=== PATIENT | male | born 1990 | race American Indian/Alaskan Native ===

== ENCOUNTER 2019-11-01 23:02 | Emergency (ER) | payer MEDICARE ==
[2019-11-02] MEDS ORDERED: diphenhydrAMINE 25 MG CAP PO ONE (00:15)
[2019-11-02] MEDS ORDERED: ONDANSETRON 4 MG/2 ML INJ IV ONE (00:15)
[2019-11-02] MEDS ORDERED: MORPHINE 4 MG/1 ML INJ IV ONE (00:15)
--- NOTE | 2019-11-02 00:17 | Emergency Department Report ---
ED General Adult HPI - General Chief complaint: Abdominal Pain Stated complaint: ABD PAIN/EMESIS Time Seen by Provider: 11/02/19 00:05 Source: patient, RN notes reviewed, old records reviewed Mode of arrival: Ambulatory Limitations: No Limitations - History of Present Illness Initial comments: This patient is not known to myself previously. His primary care doctor and sandwich board carrier is Dr. Mueller in [place] Patient has a history of end-stage renal disease, on hemodialysis, right thoracic permacath. Also has a history of left lower extremity below-knee amputation, typically gets dialysis Thursday, , Thursday, although this past week, has been on dialysis Thursday, Thursday, secondary to family issues. He presents to the ER with a complaint of probable pancreatitis. He complains of diffuse abdominal cramping, left-sided, nausea vomiting, without fever, neck pain, chest pain, exertional shortness of breath, or extremity weakness and or numbness. He does not produce urine. He endorses that hydromorphone and Benadryl typically improve his symptoms. He is able to tolerate morphine, he indicates that he gets hives. He denies intraoral symptoms for morphine administration. He is not sure what happens with Demerol. -: Gradual, days(s) Location: abdomen Quality: aching Consistency: constant Improves with: medication, rest Worsens with: movement - Related Data Home Medications Medication Instructions Recorded Confirmed Last Taken Calcium Acetate [Phoslo] 667 mg PO TID 11/17/16 11/17/16 Unknown carvediloL [Coreg] 12.5 mg PO DAILY 11/17/16 11/17/16 Unknown Previous Rx's Medication Instructions Recorded Last Taken Type Ondansetron [Zofran Odt] 4 mg PO Q4H PRN #10 tab.rapdis 11/17/16 Unknown Rx Oxycodone HCl/Acetaminophen 1 each PO Q6HR PRN #10 tablet 11/21/16 Unknown Rx [Percocet 7.5/325 mg] hydrALAZINE [Apresoline TAB] 100 mg PO TID #90 tab 11/21/16 Unknown Rx levoFLOXacin [Levaquin TAB] 250 mg PO Q24HR #7 tablet 11/21/16 Unknown Rx metroNIDAZOLE [Flagyl TAB] 250 mg PO Q8HR 7 Days tablet 11/21/16 Unknown Rx Acetaminophen [Non-Aspirin Extra 500 mg PO Q6HR PRN #30 tablet 11/02/19 Unknown Rx Strength] Albuterol Sulfate [Proair 90 mcg IH Q4HR PRN #2 aer.pow.ba 11/02/19 Unknown Rx Respiclick] Radha Root [Radha] 250 mg PO QID PRN #30 capsule 11/02/19 Unknown Rx Metoclopramide [Reglan] 10 mg PO QID PRN #30 tablet 11/02/19 Unknown Rx Allergies Allergy/AdvReac Type Severity Reaction Status Date / Time meperidine HCl [From Demerol] Allergy Hives Verified 06/18/16 05:06 morphine Allergy Hives Verified 06/18/16 05:06 ED Review of Systems ROS: Stated complaint: ABD PAIN/EMESIS Other details as noted in HPI Constitutional: denies: fever Eyes: denies: eye discharge ENT: denies: congestion Respiratory: denies: wheezing Cardiovascular: denies: syncope Gastrointestinal: abdominal pain, nausea, vomiting Genitourinary: denies: dysuria Neurological: denies: weakness Hematological/Lymphatic: denies: easy bleeding ED Past Medical Hx - Past Medical History Hx Hypertension: Yes Hx Congestive Heart Failure: No Hx Diabetes: No Hx Renal Disease: Yes (Dialysis Thu) Hx Asthma: No Hx COPD: No Additional medical history: Pancreatitis 2 years back. - Surgical History Past Surgical History?: Yes Hx Cholecystectomy: Yes (Gall bladder removed.) Additional Surgical History: Dialysis port, left BKA secondary to peripheral vascular disease. Left Leg BKA,, Stump healed well. Gall bladder removed 2 years back. - Social History Smoking Status: Never Smoker Substance Use Type: None - Medications Home Medications: Home Medications Medication Instructions Recorded Confirmed Last Taken Type Calcium Acetate [Phoslo] 667 mg PO TID 11/17/16 11/17/16 Unknown History Ondansetron [Zofran Odt] 4 mg PO Q4H PRN #10 tab.rapdis 11/17/16 Unknown Rx carvediloL [Coreg] 12.5 mg PO DAILY 11/17/16 11/17/16 Unknown History Oxycodone HCl/Acetaminophen 1 each PO Q6HR PRN #10 tablet 11/21/16 Unknown Rx [Percocet 7.5/325 mg] hydrALAZINE [Apresoline TAB] 100 mg PO TID #90 tab 11/21/16 Unknown Rx levoFLOXacin [Levaquin TAB] 250 mg PO Q24HR #7 tablet 11/21/16 Unknown Rx metroNIDAZOLE [Flagyl TAB] 250 mg PO Q8HR 7 Days tablet 11/21/16 Unknown Rx Acetaminophen [Non-Aspirin Extra 500 mg PO Q6HR PRN #30 tablet 11/02/19 Unknown Rx Strength] Albuterol Sulfate [Proair 90 mcg IH Q4HR PRN #2 aer.pow.ba 11/02/19 Unknown Rx Respiclick] Radha Root [Radha] 250 mg PO QID PRN #30 capsule 11/02/19 Unknown Rx Metoclopramide [Reglan] 10 mg PO QID PRN #30 tablet 11/02/19 Unknown Rx ED Physical Exam - General Limitations: No Limitations General appearance: alert, anxious - Head Head exam: Present: atraumatic, normocephalic - Eye Eye exam: Present: normal appearance, EOMI. Absent: nystagmus - ENT ENT exam: Present: normal exam, normal orophraynx, mucous membranes moist, normal external ear exam - Neck Neck exam: Present: normal inspection, full ROM. Absent: tenderness, meningismus - Respiratory Respiratory exam: Present: decreased breath sounds. Absent: wheezes, rales, rhonchi, stridor - Cardiovascular Cardiovascular Exam: Present: regular rate, normal rhythm, normal heart sounds. Absent: bradycardia, tachycardia, irregular rhythm, systolic murmur, diastolic murmur, rubs, gallop - GI/Abdominal GI/Abdominal exam: Present: soft, tenderness (there is minimal left-sided abdominal tenderness with deep palpation.). Absent: distended, guarding, rebound, rigid, pulsatile mass - Rectal Rectal exam: Present: deferred - Extremities Exam Extremities exam: Present: normal inspection, full ROM, other (2+ pulses noted in the bilateral upper extremities and right lower extremity. Left lower extremity is status post below-knee amputation. There is no redness, pus or streaking. The muscular compartments are soft.). Absent: pedal edema, calf tenderness - Back Exam Back exam: Present: normal inspection. Absent: tenderness, CVA tenderness (R), CVA tenderness (L), paraspinal tenderness, vertebral tenderness - Neurological Exam Neurological exam: Present: alert, other (there is no facial droop. The tongue is midline. The extraocular movements are intact bilaterally. Speaking in full sentences. Minimal elevation of the base of the tongue. There is 5 out of 5 strength in the bilateral upper and lower extremities, and sensation is intact to light touch in the bilateral upper and lower extremities. Appropriate insight.). Absent: motor sensory deficit - Psychiatric Psychiatric exam: Present: anxious - Skin Skin exam: Present: warm, dry, intact, normal color, other (there is a right sided thoracic permacath noted, without redness, pus or streaking). Absent: rash ED Course Vital Signs 11/01/19 11/01/19 11/02/19 23:27 23:34 00:29 Temperature 98.6 F 98.6 F Pulse Rate 91 H 92 H 87 Respiratory 18 18 20 Rate Blood Pressure 128/76 128/76 Blood Pressure 136/90 [Right] O2 Sat by Pulse 83 L 93 88 Oximetry 11/02/19 00:36 Temperature Pulse Rate Respiratory Rate Blood Pressure Blood Pressure [Right] O2 Sat by Pulse 100 Oximetry - Reevaluation(s) Reevaluation #1: 11/02/19 00:43 Differential diagnosis, including but not limited to: Colitis, diverticulitis, pancreatitis, chronic renal insufficiency, pulmonary vascular congestion, fluid overload, electrolyte derangement, narcotic bowel syndrome, cyclic vomiting syndrome Assessment and plan: 29-year-old gentleman with complaint of abdominal pain, nausea vomiting, known history of pancreatitis. He is afebrile with reassuring vital signs with the exception of mild hypoxia. X-ray the chest suggests vascular congestion, pulmonary edema. We will not be administering hydromorp boy to this patient. It is too potent a narcotic at this time. Low-dose morphine acceptable at this time. Screening laboratory studies, CT scan abdomen pelvis pending at this time. EKG pending at this time. Reevaluation #2: 11/02/19 02:02 CT scan abdomen pelvis shows chronic findings. Laboratory studies reviewed and appreciated. X-ray the chest reviewed and appreciated, do not clinically suspect pneumonia at this time. Upon review of CT scan abdomen pelvis, it appears that left lower lobe findings are likely pleural thickening, small pleural effusion, and chronic granulomatous disease. Mild hypoxia reviewed and appreciated, however, the patient is not acutely symptomatic. He can take albuterol as needed, he can follow up with an outpatient records management director, and he is suitable to be discharged with oral pain medication, nausea medication, albuterol. He will need to follow up with an outpatient primary care doctor or senior ui software engineer for his chronic pancreatitis, or his primary care sandwich board carrier. ED Medical Decision Making - Lab Data Result diagrams: 11/02/19 00:18 11/02/19 00:18 Vital Signs 11/01/19 11/01/19 11/02/19 23:27 23:34 00:29 Temperature 98.6 F 98.6 F Pulse Rate 91 H 92 H 87 Respiratory 18 18 20 Rate Blood Pressure 128/76 128/76 Blood Pressure 136/90 [Right] O2 Sat by Pulse 83 L 93 88 Oximetry 11/02/19 00:36 Temperature Pulse Rate Respiratory Rate Blood Pressure Blood Pressure [Right] O2 Sat by Pulse 100 Oximetry - EKG Data 11/02/19 01:13 The EKG today shows a sinus rhythm, 74 bpm, there is a normal axis, the QTC is 452 ms, there is low voltage, motion artifact, prolonged AK interval, not consistent with ST elevation myocardial infarction. - Radiology Data Radiology results: pending, image reviewed interpreted by me: X-ray the chest shows pulmonary vascular congestion, pulmonary edema, right- sided permacath. Print Report Referring Physician: LUDMILA WEBER Patient Name: ALEXEY CHU Date of : 1990 Sex: Male Report Date: 2019-11-02 Report Status: [place] [address] XRay Report Signed Patient: ALEXEY CHU JR MR#: [id number] : 1990 Acct:[id number] Age/Sex: 29 / M ADM Date: 11/01/19 Loc: ED Attending Dr: Ordering Physician: LUDMILA WEBER MD Date of Service: 11/02/19 Procedure(s): XR chest 1V ap Accession Number(s): [id number] cc: LUDMILA WEBER MD Fluoro Time In Minutes: CHEST 1 VIEW INDICATION / CLINICAL INFORMATION: upper abd pain hypoxia. COMPARISON: None available. FINDINGS: SUPPORT DEVICES: Dialysis catheter is in place on the right. HEART / MEDIASTINUM: Moderately enlarged LUNGS / PLEURA: There are small pleural effusions and slight left basilar consolidation. Upper lungs are clear. No pneumothorax. ADDITIONAL FINDINGS: No significant additional findings. IMPRESSION: 1 Small effusions and left basilar consolidation. Signer Name: Gary Lewis MD Signed: 11/02/2019 12:50 AM Workstation Name: [id number] Transcribed By: GEOVANNY Dictated By: Gary Lewis MD Electronically Authenticated By: Gary Lewis MD Signed Date/Time: 11/02/1949 DD/ Critical care attestation.: If time is entered above; I have spent that time in minutes in the direct care of this critically ill patient, excluding procedure time. ED Disposition Clinical Impression: Chronic pancreatitis, ESRD (end stage renal disease) on dialysis Disposition: TO HOME OR SELFCARE Is pt being admited?: No Does the pt Need Aspirin: No Condition: Stable Additional Instructions: Avoid consumption of Motrin, ibuprofen, Naprosyn, Aleve. Take the pain medication as needed, nausea medications as needed and directed. Use the albuterol medication as needed for cough, wheezing and shortness of breath. Follow-up with the primary care doctor within the next 5-7 days, or senior ui software engineer within the next 5-7 days, or sandwich board carrier within the next 5-[address] scan abdomen pelvis and x-ray the chest demonstrated nonspecific findings on the lungs, this should be followed up by her primary care doctor or records management director within the next 2 weeks. Please return to the emergency room right away with new, worsening, different symptoms, or symptoms not present on the initial emergency room evaluation. Referrals: FLORY UGARTE MD [Staff Physician] - 7-10 days (gastroenterology) EDGAR FERRELL MD [Staff Physician] - 7-10 days (pulmonology) GAYLE CAMPOS MD [Staff Physician] - 7-10 days (nephrology)
[2019-11-02 00:47] LABS: Albumin 4.2 g/dL (3.9-5); Calcium 8.4 mg/dL (8.4-10.2); Hematocrit 31.1 % (35.5-45.6); Hemoglobin 10.2 gm/dl (11.8-15.2); Mean Corpuscular HGB Conc 33 % (32-34); Mean Corpuscular Volume 89 fl (84-94); Platelet Count 139 K/mm3 (140-440); Red Cell Distribution Width 17.8 % (13.2-15.2)
[2019-11-02 00:49] LABS: INR 1.01 (0.87-1.13)
--- NOTE | 2019-11-02 00:55 | XRay Report ---
CHEST 1 VIEW INDICATION / CLINICAL INFORMATION: upper abd pain hypoxia. COMPARISON: None available. FINDINGS: SUPPORT DEVICES: Dialysis catheter is in place on the right. HEART / MEDIASTINUM: Moderately enlarged LUNGS / PLEURA: There are small pleural effusions and slight left basilar consolidation. Upper lungs are clear. No pneumothorax. ADDITIONAL FINDINGS: No significant additional findings. IMPRESSION: 1 Small effusions and left basilar consolidation. Signer Name: Gary Lewis MD Signed: 11/02/2019 12:50 AM Workstation Name: [email or web address]
--- NOTE | 2019-11-02 01:46 | Cat Scan Report ---
CT of the abdomen and pelvis without contrast INDICATION: Abdominal pain with nausea and vomiting COMPARISON: 11/20/2016 FINDINGS: Calcified granulomas and parenchymal calcifications are seen at the lung bases. There is si gnificant cardiomegaly with pericardial calcification as well. Moderate bibasilar pleural thickening is seen with a small left pleural effusion. The liver, spleen and adrenal glands are grossly normal. There is marked renal atrophy and cystic changes consistent with renal failure. Extensive vascular ca lcification is seen as well as extensive pancreatic calcifications consistent with chronic calcific p ancreatitis. Pancreatic ductal dilation is seen as well. Common duct is not dilated. Gallbladder is b een removed. There is small amount of ascites in the upper abdomen. CT of the pelvis shows no bowel obstruction. Prostate is not enlarged. No diverticulosis or diverticu litis. Osteoporosis is seen. Appendix is seen and is normal. IMPRESSION: Chronic findings as described. No acute abnormality seen. Automated exposure control was utilized to diminish radiation dose. Signer Name: Gary Lewis MD Signed: 11/02/2019 1:42 AM Workstation Name: [email or web address]
[2019-11-02 03:07] VITALS: BP 117/84
== END 2019-11-02 02:30 | disposition home or self-care (01) ==
LOC: ED 23:02
DX: K86.1 Other chronic pancreatitis (principal); I12.0 Hypertensive chronic kidney disease with stage 5 chronic kidney disease or end stage renal disease; N18.6 End stage renal disease; Z99.2 Dependence on renal dialysis; Z90.49 Acquired absence of other specified parts of digestive tract; Z79.899 Other long term (current) drug therapy; Z88.5 Allergy status to narcotic agent; Z88.8 Allergy status to other drugs, medicaments and biological substances
CPT/HCPCS: 36415; 71045; 74176; 80053; 82550; 83690; 83735; 85027; 85610; 93005; 93010; 96374; 96375; 99285; J2270; J2405

== ENCOUNTER 2021-01-01 20:49 | Observation (INO) | payer MEDICARE ==
[2021-01-01 22:10] LABS: Basophils % (Auto) 0.7 % (0.0-1.8); Eosinophils # (Auto) 0.2 K/mm3 (0.0-0.4); Eosinophils % (Auto) 4.2 % (0.0-4.3); Hematocrit 25.3 % (35.5-45.6); Hemoglobin 8.3 gm/dl (11.8-15.2); Lymphocytes # (Auto) 0.8 K/mm3 (1.2-5.4); Mean Corpuscular HGB Conc 33 % (32-34); Mean Corpuscular Volume 89 fl (84-94); Monocytes # (Auto) 0.5 K/mm3 (0.0-0.8); Monocytes % (Auto) 10.6 % (0.0-7.3); Platelet Count 146 K/mm3 (140-440); Red Blood Count 2.85 M/mm3 (3.65-5.03); Red Cell Distribution Width 16.2 % (13.2-15.2)
[2021-01-01 23:26] LABS: Albumin 3.8 g/dL (3.9-5); Calcium 7.7 mg/dL (8.4-10.2)
[2021-01-02] MEDS ORDERED: ONDANSETRON 4 MG/2 ML INJ IV ONE ×2 (00:49→02:31)
[2021-01-02] MEDS ORDERED: HYDROmorphone 1 MG/1 ML INJ IV ONE ×2 (00:49→02:31)
--- NOTE | 2021-01-02 00:54 | Emergency Department Report ---
HPI - General Chief Complaint: Abdominal Pain Time Seen by Provider: 01/02/21 00:18 - HPI HPI: This is a 30-year-old -[place]ub[place] male presents to the emergency department with complaint of a 3-day history of mid upper abdominal pain with some radiati on towards the back. This is associated with some nausea and vomiting and some loose stools. Patient denies any fever, blood in the stool, dysuria, constipation, shortness of breath, chest pain. The patient was here about 1 month ago with similar symptoms and was found to have colitis at that time. The patient thinks that it is due to his pancreas as he has a history of chronic pancreatitis. He has a past medical history of hypertension, pulmonary fibrosis on home O2 at 3 L, left BKA secondary to PVD, previous cholecystectomy, and end- stage renal disease on hemodialysis on Thursday/Thursday/Thursday. However the patient says that he is getting dialyzed this week ///Thursday. His nephro logist is Dr. Harris. He has not taken anything for his symptoms prior to presentation. No recent travel or sick contacts at home. He rates his abdominal pain at 9 out of 10 in intensity. No known aggravating or alleviating factors. ED Past Medical Hx - Past Medical History Previous Medical History?: Yes Hx Hypertension: Yes Hx Congestive Heart Failure: No Hx Diabetes: No Hx Renal Disease: Yes (11/2020 Dialysis: Thu) Hx Asthma: No Hx COPD: No Additional medical history: Pancreatitis 2 years back. Pulmonary fibrosis with chronic respiratory failure and home oxygen @ 3L - Surgical History Past Surgical History?: Yes Hx Cholecystectomy: Yes (Gall bladder removed.) Additional Surgical History: Dialysis port, left BKA secondary to peripheral vascular disease. Left Leg BKA,, Stump healed well. Gall bladder removed 2 years back. - Social History Smoking Status: Never Smoker Substance Use Type: None - Medications Home Medications: Home Medications Medication Instructions Recorded Confirmed Last Taken Type Calcium Acetate [Phoslo] 667 mg PO TID 11/17/16 11/17/16 Unknown History Ondansetron [Zofran Odt] 4 mg PO Q4H PRN #10 tab.rapdis 11/17/16 Unknown Rx carvediloL [Coreg] 12.5 mg PO DAILY 11/17/16 11/17/16 Unknown History Oxycodone HCl/Acetaminophen 1 each PO Q6HR PRN #10 tablet 11/21/16 Unknown Rx [Percocet 7.5/325 mg] hydrALAZINE [Apresoline TAB] 100 mg PO TID #90 tab 11/21/16 Unknown Rx levoFLOXacin [Levaquin TAB] 250 mg PO Q24HR #7 tablet 11/21/16 Unknown Rx metroNIDAZOLE [Flagyl TAB] 250 mg PO Q8HR 7 Days tablet 11/21/16 Unknown Rx Acetaminophen [Non-Aspirin Extra 500 mg PO Q6HR PRN #30 tablet 11/02/19 Unknown Rx Strength] Albuterol Sulfate [Proair 90 mcg IH Q4HR PRN #2 aer.pow.ba 11/02/19 Unknown Rx Respiclick] Radha Root [Radha] 250 mg PO QID PRN #30 capsule 11/02/19 Unknown Rx Metoclopramide [Reglan] 10 mg PO QID PRN #30 tablet 11/02/19 Unknown Rx Lansoprazole 15 mg PO BID #14 capsule. 05/10/20 Unknown Rx traMADoL [Ultram 50 MG tab] 50 mg PO Q6HR PRN #7 tablet 05/10/20 Unknown Rx ED Review of Systems ROS: Stated complaint: ABDOMINAL PAIN/VOMITING Other details as noted in HPI Comment: All other systems reviewed and negative Constitutional: denies: chills, fever Eyes: denies: eye pain, vision change ENT: denies: ear pain, throat pain Respiratory: denies: cough, shortness of breath Cardiovascular: denies: chest pain, palpitations Gastrointestinal: abdominal pain, nausea, vomiting, diarrhea Genitourinary: denies: dysuria, discharge Musculoskeletal: back pain. denies: arthralgia Skin: denies: rash, lesions Neurological: denies: headache, weakness Physical Exam - Physical Exam Vital Signs: Vital Signs 01/01/21 01/02/21 21:39 00:25 Temperature 99.0 F Pulse Rate 109 H 83 Respiratory 18 17 Rate Blood Pressure 128/94 O2 Sat by Pulse 91 100 Oximetry Physical Exam: GENERAL: The patient is well-developed well-nourished. HENT: Normocephalic. Atraumatic. Patient has moist mucous membranes. EYES: Extraocular motions are intact. NECK: Supple. Trachea is midline. CHEST/LUNGS: Coarse breath sounds at the bases. No tachypnea. There is no respiratory distress noted. HEART/CARDIOVASCULAR: Regular. There is no tachycardia. There is no murmur. ABDOMEN: Abdomen is soft. Upper abdominal tenderness to palpation. No guarding. Patient has normal bowel sounds. SKIN: Skin is warm and dry. NEURO: The patient is awake, alert, and oriented. The patient is cooperative. The patient has no focal neurologic deficits. Normal speech. MUSCULOSKELETAL: There is no tenderness or deformity. There is no limitation range of motion. ED Course Vital Signs 01/01/21 01/02/21 21:39 00:25 Temperature 99.0 F Pulse Rate 109 H 83 Respiratory 18 17 Rate Blood Pressure 128/94 O2 Sat by Pulse 91 100 Oximetry - Consultations Consultation #1: 01/02/21 00:38 I spoke to the patient's jtac, Dr. Harris, who says he will see the patient as a consult and will most likely get the patient dialyzed today, Thursday. ED Medical Decision Making - Lab Data Result diagrams: 01/01/21 21:49 01/01/21 21:49 Lab Results 01/01/21 01/01/21 Range/Units 21:49 21:49 WBC 4.6 (4.5-11.0) K/mm3 RBC 2.85 L (3.65-5.03) M/mm3 Hgb 8.3 L (11.8-15.2) gm/dl Hct 25.3 L (35.5-45.6) % MCV 89 (84-94) fl MCH 29 (28-32) pg MCHC 33 (32-34) % RDW 16.2 H (13.2-15.2) % Plt Count 146 (140-440) K/mm3 Lymph % (Auto) 17.0 (13.4-35.0) % [place] % (Auto) 10.6 H (0.0-7.3) % Eos % (Auto) 4.2 (0.0-4.3) % Baso % (Auto) 0.7 (0.0-1.8) % Lymph # (Auto) 0.8 L (1.2-5.4) K/mm3 [place] # (Auto) 0.5 (0.0-0.8) K/mm3 Eos # (Auto) 0.2 (0.0-0.4) K/mm3 Baso # (Auto) 0.0 (0.0-0.1) K/mm3 Seg Neutrophils % 67.5 (40.0-70.0) % Seg Neutrophils # 3.1 (1.8-7.7) K/mm3 Sodium 140 (137-145) mmol/L Potassium 4.2 (3.6-5.0) mmol/L Chloride 97.5 L (98-107) mmol/L Carbon Dioxide 20 L (22-30) mmol/L Anion Gap 27 mmol/L BUN 71 H (9-20) mg/dL Creatinine 11.0 H (0.8-1.3) mg/dL Estimated GFR 7 ml/min BUN/Creatinine Ratio 6 % Glucose 104 H (75-100) mg/dL Calcium 7.7 L (8.4-10.2) mg/dL Total Bilirubin 0.40 (0.1-1.2) mg/dL AST 17 (5-40) units/L ALT 12 (7-56) units/L Alkaline Phosphatase 1472 H (35-129) units/L Total Protein 6.0 L (6.3-8.2) g/dL Albumin 3.8 L (3.9-5) g/dL Albumin/Globulin Ratio 1.7 % Lipase 22 (13-60) units/L - Radiology Data Radiology results: image reviewed interpreted by me: Abdominal x-ray shows nonspecific nonobstructive bowel gas. - Medical Decision Making This patient presents to the emergency department with a 3-day history of upper abdominal pain and nausea with vomiting. This is consistent with the patient's visit here about 1 month ago in which she had some mild colitis. Abdominal x- ray shows nonspecific nonobstructive bowel gas. On examination the patient has some reproducible tenderness to palpation to the upper quadrants of the abdomen, but the abdomen is soft, nondistended and nontoxic in appearance. He was given a few doses of IV analgesia and antiemetics with some improvement. The patient's labs show renal insufficiency consistent with his end-stage renal disease, but the patient does have moderately elevated BUN level concerning for developing uremia. I spoke to the patient's jtac to will see the patient as a consult and will most likely provide dialysis. Normally the patient would have scheduled dialysis today as he is Thursday/Thursday/Thursday, but he says that he was set up with a different schedule for this week only. No hyperkalemia. The patient does have a very elevated alk phos level that is also consistent with previous visits. Normal lipase and LFTs. The patient will be admitted to the hospital for further evaluation and a nephrology consultation and was accepted for admission by the hospitalist, Dr. Monterroso. Critical Care Time: No Critical care attestation.: If time is entered above; I have spent that time in minutes in the direct care of this critically ill patient, excluding procedure time. ED Disposition Clinical Impression: ESRD needing dialysis, Elevated BUN Nausea and vomiting Qualifiers: Vomiting type: unspecified Vomiting Intractability: non-intractable Qualified Code(s): R11.2 - Nausea with vomiting, unspecified Abdominal pain Qualifiers: Abdominal location: upper abdomen, unspecified Qualified Code(s): R10.10 - Upper abdominal pain, unspecified Disposition: 09 OP ADMIT IP TO THIS HOSP Is pt being admited?: Yes Condition: Fair Time of Disposition: 05:44
--- NOTE | 2021-01-02 01:37 | XRay Report ---
ABDOMEN 2 VIEW(S) INDICATION / CLINICAL INFORMATION: abd pain. COMPARISON: None available. FINDINGS: TUBES / LINES: None. BOWEL GAS PATTERN: No significant abnormality. FREE AIR / EXTRALUMINAL GAS: None seen. ADDITIONAL FINDINGS: Moderate cardiomegaly and small bilateral pleural effusions, left greater than r ight. Cholecystectomy clips. IMPRESSION: 1. No significant abnormality. Signer Name: Hao Gloria MD Signed: 01/02/2021 1:32 AM Workstation Name: [id number]
--- NOTE | 2021-01-02 06:21 | Consultation ---
History of Present Illness - Reason for Consult Consult date: 01/02/21 end stage renal disease - History of Present Illness Patient is a 30 yo AAM known to our service, with history significant for Hypertension, Anemia, Pancreatitis, Pleural effusion, Chronic resp failure on home O2, L BKA and ESRD on hemodialysis(TTS) who presented to [facility] ED 01/02 c/o abdominal pain of 3 days duration. Patient reports left upper & left lower quadrant pain that is constant, 10/10 and radiating to the back. Patient admits N & V. Patient denied fever, chills, diarrhea, chest pain, productive cough, skin rash, recent ill contacts, calf pain or known exposure to COVID-19. Patient was admitted for further evaluation. Per patient he was last dialyzed 2 days ago. Nephrology was consulted for ESRD management. Past History Past Medical History: other (See HPI.) Medications and Allergies Allergies Allergy/AdvReac Type Severity Reaction Status Date / Time butorphanol [From Stadol] Allergy Shortness Verified 11/21/20 20:37 of Breath Fish Containing Products Allergy Hives Verified 11/21/20 20:37 haloperidol [From Haldol] Allergy Shortness Verified 11/21/20 20:37 of Breath hydrocodone Allergy Angioedema Verified 11/21/20 20:37 meperidine HCl [From Demerol] Allergy Hives Verified 11/21/20 11:51 morphine Allergy Hives Verified 11/21/20 11:51 oxycodone Allergy Angioedema Verified 11/21/20 20:37 piperacillin [From Zosyn] Allergy Swelling Verified 01/01/21 21:42 tazobactam [From Zosyn] Allergy Swelling Verified 01/01/21 21:42 Home Medications Medication Instructions Recorded Confirmed Last Taken Type Calcium Acetate [Phoslo] 667 mg PO TID 11/17/16 11/17/16 Unknown History Ondansetron [Zofran Odt] 4 mg PO Q4H PRN #10 tab.rapdis 11/17/16 Unknown Rx carvediloL [Coreg] 12.5 mg PO DAILY 11/17/16 11/17/16 Unknown History Oxycodone HCl/Acetaminophen 1 each PO Q6HR PRN #10 tablet 11/21/16 Unknown Rx [Percocet 7.5/325 mg] hydrALAZINE [Apresoline TAB] 100 mg PO TID #90 tab 11/21/16 Unknown Rx levoFLOXacin [Levaquin TAB] 250 mg PO Q24HR #7 tablet 11/21/16 Unknown Rx metroNIDAZOLE [Flagyl TAB] 250 mg PO Q8HR 7 Days tablet 11/21/16 Unknown Rx Acetaminophen [Non-Aspirin Extra 500 mg PO Q6HR PRN #30 tablet 11/02/19 Unknown Rx Strength] Albuterol Sulfate [Proair 90 mcg IH Q4HR PRN #2 aer.pow.ba 11/02/19 Unknown Rx Respiclick] Radha Root [Radha] 250 mg PO QID PRN #30 capsule 11/02/19 Unknown Rx Metoclopramide [Reglan] 10 mg PO QID PRN #30 tablet 11/02/19 Unknown Rx Lansoprazole 15 mg PO BID #14 capsule. 05/10/20 Unknown Rx traMADoL [Ultram 50 MG tab] 50 mg PO Q6HR PRN #7 tablet 05/10/20 Unknown Rx Review of Systems Constitutional: anorexia, no weight loss, no weight gain, no fever, no chills Cardiovascular: no chest pain, no orthopnea, no edema, no lightheadedness, no shortness of breath, no leg edema Respiratory: shortness of breath, dyspnea on exertion, home oxygen, no cough with sputum, no hemoptysis Gastrointestinal: abdominal pain, nausea, vomiting, no diarrhea, no melena Genitourinary Male: no dysuria, no hematuria Integumentary: no wounds Exam - Vital Signs Vital signs: Vital Signs Temp Pulse Resp BP Pulse Ox 99.0 F 109 H 18 128/94 91 01/01/21 21:39 01/01/21 21:39 01/01/21 21:39 01/01/21 21:39 01/01/21 21:39 Results - Lab Results 01/01/21 21:49 01/01/21 21:49 Most recent lab results Calcium 7.7 mg/dL (8.4-10.2) L 01/01/21 21:49 Assessment and Plan 1. ESRD (end stage renal disease) on dialysis: Patient's usual hemodialysis schedule is MWF. Patient has L IJ tunnel catheter. Last outpatient HD 12/31 Hemodialysis: MW schedule. 2. FEN: Monitor lytes and volume status. 3. Acute colitis: Admitted with abdominal pain. Patient previously admitted on 11/22/2020 but left AMA. Empiric antibiotics; Flagyl and Levaquin. GI consultation. pior h/o Pancreatitis. Normal Lipase. Monitor. 4. Chronic resp failure on home O2. 5. Hypertension: Monitor BP. 6. Anemia: 2/2 ESRD. Epogen with HD. Subjective: Patient was seen and examined at the bedside. Examination: General appearance: well-nourished, mild distress due to pain, NC O2 HEENT: PERRL, hearing intact, vision intact, facial plethora noted Neck: supple, distended veins Respiratory: Clear to Auscultation, decreased breath sounds bilaterally Cardiology: regular, S1S2, no murmur Adbomen: soft, normoactive bowel sounds, mild diffuce tenderness, not distended Integumentary: no rash, warm and dry Neurologic: no focal deficit, no asterixis, alert and oriented x3 Musculoskeletal: left BKA Psychiatric: mood/affect appropriate, cooperative Hemodialysis access: Right IJ tunnel catheter
--- NOTE | 2021-01-02 08:39 | History and Physical Report ---
History of Present Illness Date of examination: 01/02/21 Date of admission: 01/02/21 05:44 Chief complaint: Missed HD History of present illness: Patient is a 30 yo AAM known to our service, with history significant for Hypertension, Anemia, chronic pancreatitis, pulmonary fibrosis on home O2 at 3 L, pleural effusion, L BKA secondary to PVD, previous cholecystectomy and ESRD on hemodialysis(MWF) who presented to [facility] ED 01/02 c/o abdominal pain of 2 days duration. The patient reports the abdominal pain is associated with some nausea and vomiting and some loose stools. Patient denies any fever, blood in the stool, dysuria, constipation, shortness of breath, chest pain. The patient was admitted here with similar symptoms and diagnosed with acute colitis (11/22/[address] scan of A/P) and started on empiric treatment of Flagyl/Cipro. However, patient left AMA. The patient thinks that his abdominal pain is due to his chronic pancreatitis. The patient says that he is getting dialyzed this week ///Thursday because he cannot undergo a complete session of hemodialysis. His [employer]ance [employer] officer is Dr. Harris. He has not taken anything for his symptoms pr ior to presentation. No recent travel or sick contacts at home. He rates his abdominal pain at 9 out of 10 in intensity. No known aggravating or alleviating factors. Past History Past Medical History: ESRD, hypertension, other (Anemia of ESRD, pancreatitis) Past Surgical History: Other (Left BKA) Social history: no significant social history Family history: no significant family history Medications and Allergies Allergies Allergy/AdvReac Type Severity Reaction Status Date / Time butorphanol [From Stadol] Allergy Shortness Verified 11/21/20 20:37 of Breath Fish Containing Products Allergy Hives Verified 11/21/20 20:37 haloperidol [From Haldol] Allergy Shortness Verified 11/21/20 20:37 of Breath hydrocodone Allergy Angioedema Verified 11/21/20 20:37 meperidine HCl [From Demerol] Allergy Hives Verified 11/21/20 11:51 morphine Allergy Hives Verified 11/21/20 11:51 oxycodone Allergy Angioedema Verified 11/21/20 20:37 piperacillin [From Zosyn] Allergy Swelling Verified 01/01/21 21:42 tazobactam [From Zosyn] Allergy Swelling Verified 01/01/21 21:42 Home Medications Medication Instructions Recorded Confirmed Last Taken Type Calcium Acetate [Phoslo] 667 mg PO TID 11/17/16 11/17/16 Unknown History Ondansetron [Zofran Odt] 4 mg PO Q4H PRN #10 tab.rapdis 11/17/16 Unknown Rx carvediloL [Coreg] 12.5 mg PO DAILY 11/17/16 11/17/16 Unknown History Oxycodone HCl/Acetaminophen 1 each PO Q6HR PRN #10 tablet 11/21/16 Unknown Rx [Percocet 7.5/325 mg] hydrALAZINE [Apresoline TAB] 100 mg PO TID #90 tab 11/21/16 Unknown Rx levoFLOXacin [Levaquin TAB] 250 mg PO Q24HR #7 tablet 11/21/16 Unknown Rx metroNIDAZOLE [Flagyl TAB] 250 mg PO Q8HR 7 Days tablet 11/21/16 Unknown Rx Acetaminophen [Non-Aspirin Extra 500 mg PO Q6HR PRN #30 tablet 11/02/19 Unknown Rx Strength] Albuterol Sulfate [Proair 90 mcg IH Q4HR PRN #2 aer.pow.ba 11/02/19 Unknown Rx Respiclick] Radha Root [Radha] 250 mg PO QID PRN #30 capsule 11/02/19 Unknown Rx Metoclopramide [Reglan] 10 mg PO QID PRN #30 tablet 11/02/19 Unknown Rx Lansoprazole 15 mg PO BID #14 capsule.dr 05/10/20 Unknown Rx traMADoL [Ultram 50 MG tab] 50 mg PO Q6HR PRN #7 tablet 05/10/20 Unknown Rx Review of Systems All systems: negative Exam - Constitutional Vitals: Temp Pulse Resp BP Pulse Ox 99.0 F 78 15 128/94 99 01/01/21 21:39 01/02/21 04:18 01/02/21 04:18 01/01/21 21:39 01/02/21 04:18 General appearance: Present: no acute distress, well-nourished - EENT Eyes: Present: PERRL ENT: hearing intact, clear oral mucosa - Neck Neck: Present: supple, normal ROM - Respiratory Respiratory effort: normal Respiratory: bilateral: CTA - Cardiovascular Heart Sounds: Present: S1 & S2. Absent: rub, click - Extremities Extremities: pulses symmetrical, No edema Extremity abnormal: other (Left BKA) Peripheral Pulses: within normal limits - Abdominal General gastrointestinal: Present: soft, non-tender, non-distended, normal bowel sounds Male genitourinary: Present: normal - Integumentary Integumentary: Present: clear, warm, dry - Musculoskeletal Musculoskeletal: gait normal, strength equal bilaterally - Psychiatric Psychiatric: appropriate mood/affect, intact judgment & insight - Neurologic Neurologic: CNII-XII intact, moves all extremities Results - Labs CBC & Chem 7: 01/01/21 21:49 01/01/21 21:49 Labs: Laboratory Last Values WBC 4.6 K/mm3 (4.5-11.0) 01/01/21 21:49 RBC 2.85 M/mm3 (3.65-5.03) L 01/01/21 21:49 Hgb 8.3 gm/dl (11.8-15.2) L 01/01/21 21:49 Hct 25.3 % (35.5-45.6) L 01/01/21 21:49 MCV 89 fl (84-94) 01/01/21 21:49 MCH 29 pg (28-32) 01/01/21 21:49 MCHC 33 % (32-34) 01/01/21 21:49 RDW 16.2 % (13.2-15.2) H 01/01/21 21:49 Plt Count 146 K/mm3 (140-440) 01/01/21 21:49 Lymph % (Auto) 17.0 % (13.4-35.0) 01/01/21 21:49 [place] % (Auto) 10.6 % (0.0-7.3) H 01/01/21 21:49 Eos % (Auto) 4.2 % (0.0-4.3) 01/01/21 21:49 Baso % (Auto) 0.7 % (0.0-1.8) 01/01/21 21:49 Lymph # (Auto) 0.8 K/mm3 (1.2-5.4) L 01/01/21 21:49 [place] # (Auto) 0.5 K/mm3 (0.0-0.8) 01/01/21 21:49 Eos # (Auto) 0.2 K/mm3 (0.0-0.4) 01/01/21 21:49 Baso # (Auto) 0.0 K/mm3 (0.0-0.1) 01/01/21 21:49 Seg Neutrophils % 67.5 % (40.0-70.0) 01/01/21 21:49 Seg Neutrophils # 3.1 K/mm3 (1.8-7.7) 01/01/21 21:49 Sodium 140 mmol/L (137-145) 01/01/21 21:49 Potassium 4.2 mmol/L (3.6-5.0) 01/01/21 21:49 Chloride 97.5 mmol/L (98-107) L 01/01/21 21:49 Carbon Dioxide 20 mmol/L (22-30) L 01/01/21 21:49 Anion Gap 27 mmol/L 01/01/21 21:49 BUN 71 mg/dL (9-20) H 01/01/21 21:49 Creatinine 11.0 mg/dL (0.8-1.3) H 01/01/21 21:49 Estimated GFR 7 ml/min 01/01/21 21:49 BUN/Creatinine Ratio 6 % 01/01/21 21:49 Glucose 104 mg/dL (75-100) H 01/01/21 21:49 Calcium 7.7 mg/dL (8.4-10.2) L 01/01/21 21:49 Total Bilirubin 0.40 mg/dL (0.1-1.2) 01/01/21 21:49 AST 17 units/L (5-40) 01/01/21 21:49 ALT 12 units/L (7-56) 01/01/21 21:49 Alkaline Phosphatase 1472 units/L (35-129) H 01/01/21 21:49 Total Protein 6.0 g/dL (6.3-8.2) L 01/01/21 21:49 Albumin 3.8 g/dL (3.9-5) L 01/01/21 21:49 Albumin/Globulin Ratio 1.7 % 01/01/21 21:49 Lipase 22 units/L (13-60) 01/01/21 21:49 Assessment and Plan Assessment and plan: Acute colitis. Patient previously admitted on 11/22/2020 but left AMA. Restart empiric antibiotics of Flagyl and Levaquin. Repeat CT scan GI consultation. Check stool studiesstool WBC, culture and C. difficile History of GI bleed. Follow-up CT scan. Occult stool studies. ESRD. Continue hemodialysis per nephrology Anemia of ESRD. Transfuse for hemoglobin less than 7
[2021-01-02] MEDS ORDERED: ACETAMINOPHEN 325 MG TAB PO PRN (08:42)
[2021-01-02] MEDS ORDERED: ONDANSETRON 4 MG/2 ML INJ IV PRN (08:42)
--- NOTE | 2021-01-02 10:54 | Cat Scan Report ---
CT ABDOMEN AND PELVIS WITHOUT IV CONTRAST INDICATION: abd pain. COMPARISON: CT 11/21/2020 TECHNIQUE: All CT scans at this facility use dose modulation, automated exposure control, iterative reconstructi on or weight based dosing, when appropriate, to reduce radiation dose to as low as reasonably achieva ble. FINDINGS: Lung Bases: Cardiomegaly is again noted. Pericardial-epicardial calcification. Catheter tip remains i n right atrium. There are chronic trace effusions. Chronic/round atelectasis is noted in the left kim g base. The density in the lateral right middle lobe is stable. Skeletal System: Osteopenia/renal osteodystrophy again noted. ABDOMEN: Liver: Unchanged. There is relative enlargement of the left lobe with respect to the right lobe. No f ocal lesions are seen given the limitations of noncontrast technique. Gallbladder: Removed. Bile Ducts: No significant abnormality. Pancreas: No acute inflammation. The pancreas is atrophic with ductal dilatation and course parenchym al calcifications consistent with chronic calcific pancreatitis. Spleen: No significant abnormality. Adrenals: No significant abnormality. Right Kidney: Atrophic with numerous cortical cysts. Left Kidney: Atrophic with numerous cortical cysts. Upper GI tract: No significant abnormality. Lymph Nodes: No significant adenopathy. Aorta: No significant abnormality. Additional Findings: No significant abnormality. PELVIS: Colon: Mild distal colonic wall thickening is again noted involving the rectum/sigmoid. Urinary Bladder and Distal Ureters: Collapsed. Appendix: No significant abnormality. Lymph Nodes: No significant adenopathy. Additional Findings: Mild anasarca. IMPRESSION: 1. Probable mild distal colitis. This appears improved when compared with the exam from 11/21/2020. No new findings. 2. Numerous incidental findings, as above. Signer Name: Braden Mcwilliams MD Signed: 01/02/2021 10:50 AM Workstation Name: [id number]
[2021-01-02] MEDS: metroNIDAZOLE/NS 500 MG/100 ML 500 MG/100 ML BAG IV SCH ×2 (11:22→17:14)
[2021-01-02] MEDS ORDERED: HEPARIN 10,000 UNITS/10 ML VIAL IV PRN (11:30)
[2021-01-02] MEDS ORDERED: SODIUM CHLORIDE 0.9% 100 ML IV PRN (11:30)
[2021-01-02] MEDS ORDERED: EPOETIN ALFA 20,000 UNIT/1 ML INJ SUB-Q PRN (11:30)
[2021-01-02] MEDS: MORPHINE 2 MG/1 ML INJ IV PRN ×2 (12:19→17:10)
[2021-01-02] MEDS: diphenhydrAMINE 50 MG/ML VIAL IV PRN ×2 (12:19→22:17)
[2021-01-02 14:42] LABS: Hepatitis B Surface Antigen Non-Reactive (Negative); Hepatitis C Virus Antibody Non-Reactive (NonReactive)
--- NOTE | 2021-01-02 15:05 | Gastroenterology Consultation ---
History of Present Illness - Reason for Consult Consult date: 01/02/21 abdominal pain Requesting physician: DANITA CORNEJO - History of Present Illness This is a 30 yo male with pmh of HTN, anemia, chronic pancreatitis, pulmonary fibrosis on home O2, pleural effusion, L BKA, previous CKD, and ESRD on HD presenting with abdominal pain. he was recently admitted in 11/2020 for colitis and left AMA after started on empiric antibiotics. He states that his pain is similar to his pancreatitis flare up with pain going to her back. No vomiting but nausea. No diarrhea or blood in the stools. He usually follows with his GI doctor in [place] for chronic pancreatitis. Has had trial of pancreatic duct stent and celiac plexus block without much relief. He is on creon at home. Medication list reviewed. Past History Past Medical History: other (See HPI.) Past Surgical History: Other (Left BKA) Social history: no significant social history Family history: no significant family history Medications and Allergies Allergies Allergy/AdvReac Type Severity Reaction Status Date / Time butorphanol [From Stadol] Allergy Shortness Verified 11/21/20 20:37 of Breath Fish Containing Products Allergy Hives Verified 11/21/20 20:37 haloperidol [From Haldol] Allergy Shortness Verified 11/21/20 20:37 of Breath hydrocodone Allergy Angioedema Verified 11/21/20 20:37 meperidine HCl [From Demerol] Allergy Hives Verified 11/21/20 11:51 morphine Allergy Hives Verified 01/02/21 12:03 oxycodone Allergy Angioedema Verified 11/21/20 20:37 piperacillin [From Zosyn] Allergy Swelling Verified 01/01/21 21:42 tazobactam [From Zosyn] Allergy Swelling Verified 01/01/21 21:42 Home Medications Medication Instructions Recorded Confirmed Last Taken Type Calcium Acetate [Phoslo] 667 mg PO TID 11/17/16 11/17/16 Unknown History Ondansetron [Zofran Odt] 4 mg PO Q4H PRN #10 tab.rapdis 11/17/16 Unknown Rx carvediloL [Coreg] 12.5 mg PO DAILY 11/17/16 11/17/16 Unknown History Oxycodone HCl/Acetaminophen 1 each PO Q6HR PRN #10 tablet 11/21/16 Unknown Rx [Percocet 7.5/325 mg] hydrALAZINE [Apresoline TAB] 100 mg PO TID #90 tab 11/21/16 Unknown Rx levoFLOXacin [Levaquin TAB] 250 mg PO Q24HR #7 tablet 11/21/16 Unknown Rx metroNIDAZOLE [Flagyl TAB] 250 mg PO Q8HR 7 Days tablet 11/21/16 Unknown Rx Acetaminophen [Non-Aspirin Extra 500 mg PO Q6HR PRN #30 tablet 11/02/19 Unknown Rx Strength] Albuterol Sulfate [Proair 90 mcg IH Q4HR PRN #2 aer.pow.ba 11/02/19 Unknown Rx Respiclick] Radha Root [Radha] 250 mg PO QID PRN #30 capsule 11/02/19 Unknown Rx Metoclopramide [Reglan] 10 mg PO QID PRN #30 tablet 11/02/19 Unknown Rx Lansoprazole 15 mg PO BID #14 capsule. 05/10/20 Unknown Rx traMADoL [Ultram 50 MG tab] 50 mg PO Q6HR PRN #7 tablet 05/10/20 Unknown Rx Active Meds: Active Medications Acetaminophen (Acetaminophen 325 Mg Tab) 650 mg PO Q4H PRN PRN Reason: Pain MILD(1-3)/Fever >100.5/WALL Diphenhydramine HCl (Diphenhydramine 50 Mg/Ml Vial) 12.5 mg IV Q6H PRN PRN Reason: Itching Last Admin: 01/02/21 12:19 Dose: 12.5 mg Documented by: Epoetin Stef (Epoetin Stef 20,000 Unit/1 Ml Inj) 20,000 unit SUB-Q JACEK PRN PRN Reason: hemodialysis Heparin Sodium (Porcine) (Heparin 10,000 Units/10 Ml Vial) 3,000 unit IV JACEK PRN PRN Reason: hemodialysis Levofloxacin/Dextrose (Levaquin 500mg/100ml) 500 mg in 100 mls @ 100 mls/hr IV Q48HR MARKY; Protocol Last Admin: 01/02/21 10:22 Dose: 100 mls/hr Documented by: Metronidazole (Flagyl 500 Mg/100 Ml) 500 mg in 100 mls @ 100 mls/hr IV Q8H MARKY; Protocol Last Admin: 01/02/21 11:22 Dose: 100 mls/hr Documented by: Sodium Chloride (Nacl 0.9%) 100 mls @ 999 mls/hr IV JACEK PRN PRN Reason: Hypotension Morphine Sulfate (Morphine 2 Mg/1 Ml Inj) 2 mg IV Q4H PRN PRN Reason: Pain, Moderate (4-6) Last Admin: 01/02/21 12:19 Dose: 2 mg Documented by: Ondansetron HCl (Ondansetron 4 Mg/2 Ml Inj) 4 mg IV Q8H PRN PRN Reason: Nausea And Vomiting Sodium Chloride (Sodium Chloride 0.9% 10 Ml Flush Syringe) 10 ml IV BID MARKY Last Admin: 01/02/21 12:19 Dose: 10 ml Documented by: Sodium Chloride (Sodium Chloride 0.9% 10 Ml Flush Syringe) 10 ml IV PRN PRN PRN Reason: LINE FLUSH Review of Systems - Review of Systems Constitutional: no weight loss, no weight gain Cardiovascular: no chest pain, no edema Gastrointestinal: nausea, vomiting, hematemesis, melena Neurological: weakness Psychiatric: anxiety Hematologic/Lymphatic: easy bruising Allergic/Immunologic: no wheezing Exam - Constitutional Vital Signs: Temp Pulse Resp BP Pulse Ox 97.9 F 74 18 125/81 100 01/02/21 08:15 01/02/21 08:15 01/02/21 08:15 01/02/21 08:15 01/02/21 08:15 General appearance: mild distress - EENT Eyes: EOM intact - Neck Neck: supple - Respiratory Respiratory effort: normal - Cardiovascular Rhythm: regular Heart Sounds: Present: S1 & S2 - Gastrointestinal General gastrointestinal: Present: soft, tender, non-distended - Integumentary Integumentary: Present: clear, warm - Neurologic Neurological: alert and oriented x3 - Labs CBC & Chem 7: 01/01/21 21:49 01/01/21 21:49 Lab Results: Laboratory Results - last 24 hr 01/01/21 01/01/21 01/02/21 21:49 21:49 13:00 WBC 4.6 RBC 2.85 L Hgb 8.3 L Hct 25.3 L MCV 89 MCH 29 MCHC 33 RDW 16.2 H Plt Count 146 Lymph % (Auto) 17.0 [place] % (Auto) 10.6 H Eos % (Auto) 4.2 Baso % (Auto) 0.7 Lymph # (Auto) 0.8 L [place] # (Auto) 0.5 Eos # (Auto) 0.2 Baso # (Auto) 0.0 Seg Neutrophils % 67.5 Seg Neutrophils # 3.1 Sodium 140 Potassium 4.2 Chloride 97.5 L Carbon Dioxide 20 L Anion Gap 27 BUN 71 H Creatinine 11.0 H Estimated GFR 7 BUN/Creatinine Ratio 6 Glucose 104 H Calcium 7.7 L Total Bilirubin 0.40 AST 17 ALT 12 Alkaline Phosphatase 1472 H Total Protein 6.0 L Albumin 3.8 L Albumin/Globulin Ratio 1.7 Lipase 22 Hepatitis A IgM Ab Non-reactive Hep Bs Antigen Non-reactive Hep B Core IgM Ab Non-reactive Hepatitis C Antibody Non-reactive Assessment and Plan # Abdominal pain # Chronic pancreatitis - suspect pain due to his chronic pancreatitis flare up. Previously tried PD stent placement and celiac plexus block without relief. - no signs of GI bleeding. Rec - supportive care - IVF hydration - pain management - creon with meals. - will follow. - Patient Problems (1) Abdominal pain Current Visit: Yes Status: Acute Qualifiers: Abdominal location: upper abdomen, unspecified Qualified Code(s): R10.10 - Upper abdominal pain, unspecified (2) Acute on chronic pancreatitis Current Visit: No Status: Acute
[2021-01-03] MEDS: MORPHINE 2 MG/1 ML INJ IV PRN ×2 (04:19→08:30)
[2021-01-03] MEDS: metroNIDAZOLE/NS 500 MG/100 ML 500 MG/100 ML BAG IV SCH (04:19)
[2021-01-03] MEDS: diphenhydrAMINE 50 MG/ML VIAL IV PRN (04:19)
[2021-01-03 07:08] LABS: Basophils % (Auto) 0.4 % (0.0-1.8); Eosinophils # (Auto) 0.1 K/mm3 (0.0-0.4); Eosinophils % (Auto) 4.3 % (0.0-4.3); Hematocrit 23.7 % (35.5-45.6); Hemoglobin 7.4 gm/dl (11.8-15.2); Lymphocytes # (Auto) 0.4 K/mm3 (1.2-5.4); Lymphocytes % (Auto) 11.5 % (13.4-35.0); Mean Corpuscular HGB Conc 31 % (32-34); Mean Corpuscular Volume 91 fl (84-94); Monocytes # (Auto) 0.4 K/mm3 (0.0-0.8); Monocytes % (Auto) 11.8 % (0.0-7.3); Platelet Count 137 K/mm3 (140-440); Red Cell Distribution Width 16.2 % (13.2-15.2)
[2021-01-03 07:19] LABS: Calcium 8.1 mg/dL (8.4-10.2)
--- NOTE | 2021-01-03 09:47 | Progress Note ---
Assessment and Plan Assessment and plan: Acute colitis. Patient previously admitted on 11/22/2020 but left AMA. Restart empiric antibiotics of Flagyl and Levaquin. Repeat CT scan GI consultation. Check stool studiesstool WBC, culture and C. difficile History of GI bleed. Follow-up CT scan. Occult stool studies. ESRD. Continue hemodialysis per nephrology Anemia of ESRD. Transfuse for hemoglobin less than 7 01/03/2021. Continue IV antibiotics and follow-up serial lipase levels. Continue hemodialysis per nephrology. Follow-up H&H and transfuse for hemoglobin less than 7 History Interval history: No new issues overnight Hospitalist Physical - Constitutional Vitals: Temp Pulse Resp BP Pulse Ox 98.4 F 76 16 120/83 100 01/03/21 07:37 01/03/21 08:17 01/03/21 07:37 01/03/21 08:17 01/03/21 08:17 General appearance: Present: no acute distress, well-nourished - EENT Eyes: Present: PERRL, EOM intact ENT: hearing intact, clear oral mucosa, dentition normal - Neck Neck: Present: supple, normal ROM - Respiratory Respiratory effort: normal Respiratory: bilateral: CTA - Cardiovascular Rhythm: regular Heart Sounds: Present: S1 & S2. Absent: gallop, rub - Extremities Extremities: no ischemia, No edema, Full ROM - Abdominal General gastrointestinal: soft, non-tender, non-distended, normal bowel sounds - Integumentary Integumentary: Present: clear, warm, dry - Neurologic Neurologic: CNII-XII intact, moves all extremities Results - Labs CBC & Chem 7: 01/03/21 06:44 01/03/21 06:44 Labs: Laboratory Last Values WBC 3.4 K/mm3 (4.5-11.0) L 01/03/21 06:44 RBC 2.60 M/mm3 (3.65-5.03) L 01/03/21 06:44 Hgb 7.4 gm/dl (11.8-15.2) L 01/03/21 06:44 Hct 23.7 % (35.5-45.6) L 01/03/21 06:44 MCV 91 fl (84-94) 01/03/21 06:44 MCH 29 pg (28-32) 01/03/21 06:44 MCHC 31 % (32-34) L 01/03/21 06:44 RDW 16.2 % (13.2-15.2) H 01/03/21 06:44 Plt Count 137 K/mm3 (140-440) L 01/03/21 06:44 Lymph % (Auto) 11.5 % (13.4-35.0) L 01/03/21 06:44 [place] % (Auto) 11.8 % (0.0-7.3) H 01/03/21 06:44 Eos % (Auto) 4.3 % (0.0-4.3) 01/03/21 06:44 Baso % (Auto) 0.4 % (0.0-1.8) 01/03/21 06:44 Lymph # (Auto) 0.4 K/mm3 (1.2-5.4) L 01/03/21 06:44 [place] # (Auto) 0.4 K/mm3 (0.0-0.8) 01/03/21 06:44 Eos # (Auto) 0.1 K/mm3 (0.0-0.4) 01/03/21 06:44 Baso # (Auto) 0.0 K/mm3 (0.0-0.1) 01/03/21 06:44 Seg Neutrophils % 72.0 % (40.0-70.0) H 01/03/21 06:44 Seg Neutrophils # 2.5 K/mm3 (1.8-7.7) 01/03/21 06:44 Sodium 141 mmol/L (137-145) 01/03/21 06:44 Potassium 3.6 mmol/L (3.6-5.0) 01/03/21 06:44 Chloride 102.0 mmol/L (98-107) 01/03/21 06:44 Carbon Dioxide 27 mmol/L (22-30) D 01/03/21 06:44 Anion Gap 16 mmol/L 01/03/21 06:44 BUN 28 mg/dL (9-20) H 01/03/21 06:44 Creatinine 6.6 mg/dL (0.8-1.3) H 01/03/21 06:44 Estimated GFR 12 ml/min 01/03/21 06:44 BUN/Creatinine Ratio 4 % 01/03/21 06:44 Glucose 120 mg/dL (75-100) H 01/03/21 06:44 Calcium 8.1 mg/dL (8.4-10.2) L 01/03/21 06:44 Total Bilirubin 0.40 mg/dL (0.1-1.2) 01/01/21 21:49 AST 17 units/L (5-40) 01/01/21 21:49 ALT 12 units/L (7-56) 01/01/21 21:49 Alkaline Phosphatase 1472 units/L (35-129) H 01/01/21 21:49 Total Protein 6.0 g/dL (6.3-8.2) L 01/01/21 21:49 Albumin 3.8 g/dL (3.9-5) L 01/01/21 21:49 Albumin/Globulin Ratio 1.7 % 01/01/21 21:49 Lipase 22 units/L (13-60) 01/01/21 21:49 Hepatitis A IgM Ab Non-reactive (NonReactive) 01/02/21 13:00 Hep Bs Antigen Non-reactive (Negative) 01/02/21 13:00 Hep B Core IgM Ab Non-reactive (NonReactive) 01/02/21 13:00 Hepatitis C Antibody Non-reactive (NonReactive) 01/02/21 13:00 [place]/IV: Voiding Method Urinal Active Medications - Current Medications Current Medications: Generic Name Dose Route Start Last Admin Trade Name Freq PRN Reason Stop Dose Admin Acetaminophen 650 mg 01/02/21 08:42 Acetaminophen 325 Mg Tab PO Q4H PRN Pain MILD(1-3)/Fever >100.5/WALL Diphenhydramine HCl 12.5 mg 01/02/21 11:25 01/03/21 04:19 Diphenhydramine 50 Mg/Ml Vial IV 12.5 mg Q6H PRN Administration Itching Epoetin Stef 20,000 unit 01/02/21 11:30 Epoetin Stef 20,000 Unit/1 Ml Inj SUB-Q JACEK PRN hemodialysis Heparin Sodium (Porcine) 3,000 unit 01/02/21 11:30 Heparin 10,000 Units/10 Ml Vial IV JACEK PRN hemodialysis Levofloxacin/Dextrose 500 mg in 100 mls @ 100 mls/hr 01/02/21 10:00 01/02/21 10:22 Levaquin 500mg/100ml IV 100 mls/hr Q48HR MARKY Administration Protocol Metronidazole 500 mg in 100 mls @ 100 mls/hr 01/02/21 10:00 01/03/21 04:19 Flagyl 500 Mg/100 Ml IV 100 mls/hr Q8H MARKY Administration Protocol Sodium Chloride 100 mls @ 999 mls/hr 01/02/21 11:30 Nacl 0.9% IV JACKE PRN Hypotension Morphine Sulfate 2 mg 01/02/21 10:02 01/03/21 04:19 Morphine 2 Mg/1 Ml Inj IV 2 mg Q4H PRN Administration Pain, Moderate (4-6) Ondansetron HCl 4 mg 01/02/21 08:42 Ondansetron 4 Mg/2 Ml Inj IV Q8H PRN Nausea And Vomiting Sodium Chloride 10 ml 01/02/21 10:00 01/02/21 12:19 Sodium Chloride 0.9% 10 Ml Flush Syringe IV 10 ml BID MARKY Administration Sodium Chloride 10 ml 01/02/21 08:42 Sodium Chloride 0.9% 10 Ml Flush Syringe IV PRN PRN LINE FLUSH
--- NOTE | 2021-01-03 11:14 | Progress Note ---
Assessment and Plan 1. ESRD (end stage renal disease) on dialysis: Patient's usual hemodialysis schedule is MWF. Patient has L IJ tunnel catheter. Last outpatient HD 12/31 Hemodialysis: MWF schedule. 2. FEN: Monitor lytes and volume status. 3. Chronic pancreatitis: Admitted with abdominal pain. Patient previously admitted on 11/22/2020 but left AMA. Empiric antibiotics; Flagyl and Levaquin. Followed by GI. Normal Lipase. Monitor. 4. Chronic resp failure on home O2. 5. Hypertension: Monitor BP. 6. Anemia: 2/2 ESRD. Epogen with HD. Subjective: Patient was seen and examined at the bedside. No new complaint. Examination: General appearance: well-nourished, mild distress due to pain, NC O2 HEENT: PERRL, hearing intact, vision intact, facial plethora noted Neck: supple, distended veins Respiratory: Clear to Auscultation, decreased breath sounds bilaterally Cardiology: regular, S1S2, no murmur Adbomen: soft, normoactive bowel sounds, not tender, not distended Integumentary: no rash, warm and dry Neurologic: no focal deficit, no asterixis, alert and oriented x3 Musculoskeletal: left BKA Psychiatric: mood/affect appropriate, cooperative Hemodialysis access: left IJ tunnel catheter Subjective Date of service: 01/03/21 Objective - Vital Signs Vital signs: Vital Signs - 12hr 01/02/21 01/03/21 01/03/21 23:27 04:19 04:31 Temperature 98.6 F 98.5 F Pulse Rate 75 77 Respiratory 18 17 18 Rate Respiratory Rate [Left Abdomen] Blood Pressure 107/73 108/76 O2 Sat by Pulse 100 100 Oximetry 01/03/21 01/03/21 01/03/21 07:37 08:17 10:00 Temperature 98.4 F Pulse Rate 76 76 Respiratory 16 Rate Respiratory 17 Rate [Left Abdomen] Blood Pressure 98/63 120/83 O2 Sat by Pulse 100 100 Oximetry - Lab 01/03/21 06:44 01/03/21 06:44 Most recent lab results Calcium 8.1 mg/dL (8.4-10.2) L 01/03/21 06:44 Medications & Allergies - Medications Allergies/Adverse Reactions: Allergies butorphanol [From Stadol] Allergy (Verified 11/21/20 20:37) Shortness of Breath Fish Containing Products Allergy (Verified 11/21/20 20:37) Hives haloperidol [From Haldol] Allergy (Verified 11/21/20 20:37) Shortness of Breath hydrocodone Allergy (Verified 11/21/20 20:37) Angioedema meperidine HCl [From Demerol] Allergy (Verified 11/21/20 11:51) Hives morphine Allergy (Verified 01/02/21 12:03) Hives PATIENT STATES HE TOLERATES MORPHINE WITHOUT ISSUE WHEN GIVEN WITH BENADRYL oxycodone Allergy (Verified 11/21/20 20:37) Angioedema piperacillin [From Zosyn] Allergy (Verified 01/01/21 21:42) Swelling tazobactam [From Zosyn] Allergy (Verified 01/01/21 21:42) Swelling Home Medications: Home Medications Medication Instructions Recorded Confirmed Last Taken Type Calcium Acetate [Phoslo] 667 mg PO TID 11/17/16 11/17/16 Unknown History Ondansetron [Zofran Odt] 4 mg PO Q4H PRN #10 tab.rapdis 11/17/16 Unknown Rx carvediloL [Coreg] 12.5 mg PO DAILY 11/17/16 11/17/16 Unknown History Oxycodone HCl/Acetaminophen 1 each PO Q6HR PRN #10 tablet 11/21/16 Unknown Rx [Percocet 7.5/325 mg] hydrALAZINE [Apresoline TAB] 100 mg PO TID #90 tab 11/21/16 Unknown Rx levoFLOXacin [Levaquin TAB] 250 mg PO Q24HR #7 tablet 11/21/16 Unknown Rx metroNIDAZOLE [Flagyl TAB] 250 mg PO Q8HR 7 Days tablet 11/21/16 Unknown Rx Acetaminophen [Non-Aspirin Extra 500 mg PO Q6HR PRN #30 tablet 11/02/19 Unknown Rx Strength] Albuterol Sulfate [Proair 90 mcg IH Q4HR PRN #2 aer.pow.ba 11/02/19 Unknown Rx Respiclick] Radha Root [Radha] 250 mg PO QID PRN #30 capsule 11/02/19 Unknown Rx Metoclopramide [Reglan] 10 mg PO QID PRN #30 tablet 11/02/19 Unknown Rx Lansoprazole 15 mg PO BID #14 capsule. 05/10/20 Unknown Rx traMADoL [Ultram 50 MG tab] 50 mg PO Q6HR PRN #7 tablet 05/10/20 Unknown Rx Active Medications: Generic Name Dose Route Start Last Admin Trade Name Sunny PRN Reason Stop Dose Admin Acetaminophen 650 mg 01/02/21 08:42 Acetaminophen 325 Mg Tab PO Q4H PRN Pain MILD(1-3)/Fever >100.5/WALL Diphenhydramine HCl 12.5 mg 01/02/21 11:25 01/03/21 04:19 Diphenhydramine 50 Mg/Ml Vial IV 12.5 mg Q6H PRN Administration Itching Epoetin Stef 20,000 unit 01/02/21 11:30 Epoetin Stef 20,000 Unit/1 Ml Inj SUB-Q JACEK PRN hemodialysis Heparin Sodium (Porcine) 3,000 unit 01/02/21 11:30 Heparin 10,000 Units/10 Ml Vial IV JACEK PRN hemodialysis Levofloxacin/Dextrose 500 mg in 100 mls @ 100 mls/hr 01/02/21 10:00 01/02/21 10:22 Levaquin 500mg/100ml IV 100 mls/hr Q48HR MARKY Administration Protocol Metronidazole 500 mg in 100 mls @ 100 mls/hr 01/02/21 10:00 01/03/21 04:19 Flagyl 500 Mg/100 Ml IV 100 mls/hr Q8H MARKY Administration Protocol Sodium Chloride 100 mls @ 999 mls/hr 01/02/21 11:30 Nacl 0.9% IV JACEK PRN Hypotension Morphine Sulfate 2 mg 01/02/21 10:02 01/03/21 04:19 Morphine 2 Mg/1 Ml Inj IV 2 mg Q4H PRN Administration Pain, Moderate (4-6) Ondansetron HCl 4 mg 01/02/21 08:42 Ondansetron 4 Mg/2 Ml Inj IV Q8H PRN Nausea And Vomiting Sodium Chloride 10 ml 01/02/21 10:00 01/02/21 12:19 Sodium Chloride 0.9% 10 Ml Flush Syringe IV 10 ml BID MARKY Administration Sodium Chloride 10 ml 01/02/21 08:42 Sodium Chloride 0.9% 10 Ml Flush Syringe IV PRN PRN LINE FLUSH
[2021-01-03 11:25] LABS: INR 1.25 (0.87-1.13)
[2021-01-03 11:39] LABS: Alanine Aminotransferase 10 units/L (7-56); Albumin 3.5 g/dL (3.9-5)
[2021-01-03 12:00] LABS: Bilirubin,Direct < 0.2 mg/dL (0-0.2)
[2021-01-03] MEDS ORDERED: oxyCODONE /ACETAMINOPHEN 5-325MG TAB PO PRN (12:00)
[2021-01-03 13:35] VITALS: BP 132/93
--- NOTE | 2021-01-03 14:16 | Gastroenterology Progress Note ---
Assessment and Plan # Abdominal pain # Chronic pancreatitis - suspect pain due to his chronic pancreatitis flare up. Previously tried PD stent placement and celiac plexus block without relief. - no signs of GI bleeding. - CT showing mild colitis and atrophic pancreas. Rec - supportive care - IVF hydration - pain management - creon with meals. - obtain stool studies - empiric antibiotics for colitis - will follow. - Patient Problems (1) Abdominal pain Status: Acute Qualifiers: Abdominal location: upper abdomen, unspecified Qualified Code(s): R10.10 - Upper abdominal pain, unspecified (2) Acute on chronic pancreatitis Status: Acute Subjective Date of service: 01/03/21 Interval history: Patient continues to have abdominal pain. Lost IV access and difficult get IV started. Multiple attempts with nurse. Objective - Constitutional Vitals: Temp Pulse Resp BP Pulse Ox 97.4 F L 80 18 132/93 98 01/03/21 13:33 01/03/21 13:33 01/03/21 13:33 01/03/21 13:33 01/03/21 13:33 General appearance: no acute distress - EENT Eyes: EOM intact ENT: hearing intact - Respiratory Respiratory effort: normal - Cardiovascular Rhythm: regular Heart Sounds: Present: S1 & S2 - Gastrointestinal General gastrointestinal: Present: soft, non-distended - Integumentary Integumentary: Present: clear, warm - Neurologic Neurological: alert and oriented x3 - Labs CBC & Chem 7: 01/03/21 06:44 01/03/21 06:44 Labs: Laboratory Results - last 24 hr 01/02/21 01/03/21 01/03/21 13:00 06:44 06:44 WBC 3.4 L RBC 2.60 L Hgb 7.4 L Hct 23.7 L MCV 91 MCH 29 MCHC 31 L RDW 16.2 H Plt Count 137 L Lymph % (Auto) 11.5 L [place] % (Auto) 11.8 H Eos % (Auto) 4.3 Baso % (Auto) 0.4 Lymph # (Auto) 0.4 L [place] # (Auto) 0.4 Eos # (Auto) 0.1 Baso # (Auto) 0.0 Seg Neutrophils % 72.0 H Seg Neutrophils # 2.5 PT INR Sodium 141 Potassium 3.6 Chloride 102.0 Carbon Dioxide 27 D Anion Gap 16 BUN 28 H Creatinine 6.6 H Estimated GFR 12 BUN/Creatinine Ratio 4 Glucose 120 H Calcium 8.1 L Total Bilirubin Direct Bilirubin Indirect Bilirubin AST ALT Alkaline Phosphatase Total Protein Albumin Albumin/Globulin Ratio Hepatitis A IgM Ab Non-reactive Hep Bs Antigen Non-reactive Hep B Core IgM Ab Non-reactive Hepatitis C Antibody Non-reactive 01/03/21 01/03/21 09:21 09:21 WBC RBC Hgb Hct MCV MCH MCHC RDW Plt Count Lymph % (Auto) [place] % (Auto) Eos % (Auto) Baso % (Auto) Lymph # (Auto) [place] # (Auto) Eos # (Auto) Baso # (Auto) Seg Neutrophils % Seg Neutrophils # PT 15.5 H INR 1.25 H Sodium Potassium Chloride Carbon Dioxide Anion Gap BUN Creatinine Estimated GFR BUN/Creatinine Ratio Glucose Calcium Total Bilirubin 0.40 Direct Bilirubin < 0.2 Indirect Bilirubin 0.2 AST 16 ALT 10 Alkaline Phosphatase 1417 H Total Protein 6.4 Albumin 3.5 L Albumin/Globulin Ratio 1.2 Hepatitis A IgM Ab Hep Bs Antigen Hep B Core IgM Ab Hepatitis C Antibody
== END 2021-01-03 16:00 | disposition left against medical advice (07) ==
LOC: ED 20:49 → 3B-SURG 01-02 05:44
PROVIDERS: ADMIT Internal Medicine Geriatric Medicine; ATTEND Hospitalist
DX: J96.10 Chronic respiratory failure, unspecified whether with hypoxia or hypercapnia (principal); K52.89 Other specified noninfective gastroenteritis and colitis; I12.0 Hypertensive chronic kidney disease with stage 5 chronic kidney disease or end stage renal disease; N18.6 End stage renal disease; K92.2 Gastrointestinal hemorrhage, unspecified; K86.1 Other chronic pancreatitis; R79.9 Abnormal finding of blood chemistry, unspecified; D63.1 Anemia in chronic kidney disease; Z98.890 Other specified postprocedural states; Z79.82 Long term (current) use of aspirin; Z99.2 Dependence on renal dialysis
CPT/HCPCS: 36415; 74019; 74176; 80048; 80053; 80074; 80076; 83690; 85025; 85610; 96365; 96366; 96367; 96375; 96376; 99284; G0257; G0378; J1170; J1200; J1956; J2270; J2405

== ENCOUNTER 2021-10-07 21:15 | Emergency (ER) | payer MEDICARE ==
--- NOTE | 2021-10-07 21:50 | Emergency Department Report ---
ED Abdominal Pain HPI - General Chief Complaint: Abdominal Pain Stated Complaint: ABDOMINAL PAIN Time Seen by Provider: 10/07/21 21:34 Source: patient Mode of arrival: Wheelchair Limitations: Physical Limitation - History of Present Illness Initial Comments: Patient is 31 years old male with history of end-stage renal disease on hemodialysis, lung fibrosis on oxygen at home. Patient brought to the emergency room for evaluation of epigastric abdominal pain that radiated to his back. Patient stated that he had history of pancreatitis before. He also endorsed some nausea with no vomiting. He denied any fever or chills. He also reported mild diarrhea. Patient stated that he finished his dialysis today. MD Complaint: abdominal pain - Related Data Home Medications Medication Instructions Recorded Confirmed Last Taken Calcium Acetate [Phoslo] 667 mg PO TID 11/17/16 11/17/16 Unknown carvediloL [Coreg] 12.5 mg PO DAILY 11/17/16 11/17/16 Unknown Previous Rx's Medication Instructions Recorded Last Taken Type Ondansetron [Zofran Odt] 4 mg PO Q4H PRN #10 tab.rapdis 11/17/16 Unknown Rx Oxycodone HCl/Acetaminophen 1 each PO Q6HR PRN #10 tablet 11/21/16 Unknown Rx [Percocet 7.5/325 mg] hydrALAZINE [Apresoline TAB] 100 mg PO TID #90 tab 11/21/16 Unknown Rx levoFLOXacin [Levaquin TAB] 250 mg PO Q24HR #7 tablet 11/21/16 Unknown Rx metroNIDAZOLE [Flagyl TAB] 250 mg PO Q8HR 7 Days tablet 11/21/16 Unknown Rx Acetaminophen [Non-Aspirin Extra 500 mg PO Q6HR PRN #30 tablet 11/02/19 Unknown Rx Strength] Albuterol Sulfate [Proair 90 mcg IH Q4HR PRN #2 aer.pow.ba 11/02/19 Unknown Rx Respiclick] Radha Root [Radha] 250 mg PO QID PRN #30 capsule 11/02/19 Unknown Rx Metoclopramide [Reglan] 10 mg PO QID PRN #30 tablet 11/02/19 Unknown Rx Lansoprazole 15 mg PO BID #14 capsule. 05/10/20 Unknown Rx traMADoL [Ultram 50 MG tab] 50 mg PO Q6HR PRN #7 tablet 05/10/20 Unknown Rx Allergies Allergy/AdvReac Type Severity Reaction Status Date / Time butorphanol [From Stadol] Allergy Shortness Verified 11/21/20 20:37 of Breath Fish Containing Products Allergy Hives Verified 11/21/20 20:37 haloperidol [From Haldol] Allergy Shortness Verified 11/21/20 20:37 of Breath hydrocodone Allergy Angioedema Verified 11/21/20 20:37 meperidine HCl [From Demerol] Allergy Hives Verified 11/21/20 11:51 morphine Allergy Hives Verified 01/02/21 12:03 oxycodone Allergy Angioedema Verified 11/21/20 20:37 piperacillin [From Zosyn] Allergy Swelling Verified 01/01/21 21:42 tazobactam [From Zosyn] Allergy Swelling Verified 01/01/21 21:42 ED Review of Systems ROS: Stated complaint: ABDOMINAL PAIN Other details as noted in HPI Comment: All other systems reviewed and negative Constitutional: denies: chills, fever Respiratory: denies: cough, shortness of breath, SOB with exertion Cardiovascular: denies: chest pain, palpitations Gastrointestinal: abdominal pain. denies: nausea, vomiting, diarrhea Musculoskeletal: denies: back pain ED Past Medical Hx - Past Medical History Previous Medical History?: Yes Hx Hypertension: Yes Hx Congestive Heart Failure: No Hx Diabetes: No Hx Renal Disease: Yes (11/2020 Dialysis: Thu) Hx Asthma: No Hx COPD: No Additional medical history: Pancreatitis 2 years back. Pulmonary fibrosis with chronic respiratory failure and home oxygen @ 3L - Surgical History Past Surgical History?: Yes Hx Cholecystectomy: Yes (Gall bladder removed.) Additional Surgical History: Dialysis port, left BKA secondary to peripheral vascular disease. Left Leg BKA,, Stump healed well. Gall bladder removed 2 years back. - Social History Smoking Status: Never Smoker Substance Use Type: None - Medications Home Medications: Home Medications Medication Instructions Recorded Confirmed Last Taken Type Calcium Acetate [Phoslo] 667 mg PO TID 11/17/16 11/17/16 Unknown History Ondansetron [Zofran Odt] 4 mg PO Q4H PRN #10 tab.rapdis 11/17/16 Unknown Rx carvediloL [Coreg] 12.5 mg PO DAILY 11/17/16 11/17/16 Unknown History Oxycodone HCl/Acetaminophen 1 each PO Q6HR PRN #10 tablet 11/21/16 Unknown Rx [Percocet 7.5/325 mg] hydrALAZINE [Apresoline TAB] 100 mg PO TID #90 tab 11/21/16 Unknown Rx levoFLOXacin [Levaquin TAB] 250 mg PO Q24HR #7 tablet 11/21/16 Unknown Rx metroNIDAZOLE [Flagyl TAB] 250 mg PO Q8HR 7 Days tablet 11/21/16 Unknown Rx Acetaminophen [Non-Aspirin Extra 500 mg PO Q6HR PRN #30 tablet 11/02/19 Unknown Rx Strength] Albuterol Sulfate [Proair 90 mcg IH Q4HR PRN #2 aer.pow.ba 11/02/19 Unknown Rx Respiclick] Radha Root [Radha] 250 mg PO QID PRN #30 capsule 11/02/19 Unknown Rx Metoclopramide [Reglan] 10 mg PO QID PRN #30 tablet 11/02/19 Unknown Rx Lansoprazole 15 mg PO BID #14 capsule.dr 05/10/20 Unknown Rx traMADoL [Ultram 50 MG tab] 50 mg PO Q6HR PRN #7 tablet 05/10/20 Unknown Rx ED Physical Exam - General Limitations: Physical Limitation General appearance: alert, in no apparent distress - Head Head exam: Present: atraumatic, normocephalic, normal inspection - ENT ENT exam: Present: normal exam, normal orophraynx, mucous membranes moist - Neck Neck exam: Present: normal inspection, full ROM. Absent: tenderness, meningismus - Respiratory Respiratory exam: Present: normal lung sounds bilaterally - Cardiovascular Cardiovascular Exam: Present: regular rate, normal rhythm, normal heart sounds - GI/Abdominal GI/Abdominal exam: Present: soft, normal bowel sounds. Absent: distended, ten derness, guarding, rebound, rigid, mass, bruit, pulsatile mass, hernia - Back Exam Back exam: Present: normal inspection. Absent: CVA tenderness (R), CVA tender ness (L) - Neurological Exam Neurological exam: Present: alert, oriented X3, CN II-XII intact - Psychiatric Psychiatric exam: Present: normal mood - Skin Skin exam: Present: warm ED Course Vital Signs 10/07/21 21:17 Temperature 99.1 F Pulse Rate 105 H Respiratory 18 Rate Blood Pressure 95/73 O2 Sat by Pulse 100 Oximetry ED Medical Decision Making - Lab Data Result diagrams: 10/07/21 21:51 10/07/21 21:51 - Radiology Data Radiology results: report reviewed - Medical Decision Making Patient is 31 years old male with history of end-stage renal disease on hemodialysis, lung fibrosis on oxygen at home. Patient brought to the emergency room for evaluation of epigastric abdominal pain that radiated to his back. Patient stated that he had history of pancreatitis before. He also endorsed some nausea with no vomiting. He denied any fever or chills. He also reported mild diarrhea. Patient stated that he finished his dialysis today. Labs reviewed and is unremarkable except for chronic kidney impairment. Potassium is 3.9. CT abdomen and pelvis showed fecal impaction. Patient given prescription for Colace and lactulose and advised to follow-up with his primary doctor in the next 2 to 3 days and to return to the ER if he develop any symptoms. Critical care attestation.: If time is entered above; I have spent that time in minutes in the direct care of this critically ill patient, excluding procedure time. ED Disposition Clinical Impression: Acute abdominal pain, ESRD (end stage renal disease) on dialysis, Constipation Disposition: 01 HOME / SELF CARE / HOMELESS Is pt being admited?: No Condition: Stable Instructions: Constipation, Adult, Abdominal Pain, Adult, [id number] Referrals: PRIMARY CARE, [Referring] - 3-5 Days
[2021-10-07 22:44] LABS: Alanine Aminotransferase 9 units/L (7-56); Blood Urea Nitrogen 15 mg/dL (9-20); Calcium 8.6 mg/dL (8.4-10.2); Hemolysis Index 27
[2021-10-07 22:48] LABS: BUN/Creatinine Ratio 4; Bilirubin,Direct < 0.2 mg/dL (0-0.2)
--- NOTE | 2021-10-07 22:51 | Cat Scan Report ---
CT ABDOMEN AND PELVIS WITHOUT CONTRAST INDICATION / CLINICAL INFORMATION: Epigastric abdominal pain that radiates around to the back. TECHNIQUE: Axial CT images were obtained through the abdomen and pelvis without IV contrast. All CT scans at this location are performed using CT dose reduction for ALARA by means of automated exposure control. COMPARISON: CT from 01/02/2021 FINDINGS: Lower chest: Stable cardiomegaly with trace left pleural fluid and round atelectasis in the left lung base. There is mild interstitial edema. No new or worsening airspace disease. Hepatobiliary: Gallbladder surgically absent. Liver is unremarkable. Pancreas: No significant abnormality. Spleen: No significant abnormality Adrenals: No significant abnormality Kidneys: Bilateral renal atrophy with multiple renal cysts. No hydronephrosis. Bladder: Decompressed Bowel: Small bowel is normal in caliber. There is moderate colonic stool burden with distention of th e rectal vault. No evidence of colitis. The appendix is normal. Other: No free air, free fluid, or focal fluid collection is identified. Abdominal aorta is normal in caliber. Bones: No acute osseous findings. 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 Postoperative changes of the right proximal femur. IMPRESSION: 1. Findings of fecal impaction with moderate colonic stool burden distending the rectal vault. No stefanie dence of colitis. 2. Otherwise, no acute process. Multiple chronic and incidental findings detailed above. Signer Name: Gary Baez MD Signed: 10/07/2021 10:47 PM Workstation Name: [id number]
[2021-10-07 22:52] LABS: Basophils % (Auto) 0.6 % (0.0-1.8); Eosinophils # (Auto) 0.1 K/mm3 (0.0-0.4); Hematocrit 31.3 % (35.5-45.6); Hemoglobin 9.7 gm/dl (11.8-15.2); Lymphocytes # (Auto) 0.5 K/mm3 (1.2-5.4); Lymphocytes % (Auto) 12.3 % (13.4-35.0); Mean Corpuscular HGB Conc 31 % (32-34); Mean Corpuscular Volume 91 fl (84-94); Monocytes # (Auto) 0.5 K/mm3 (0.0-0.8); Monocytes % (Auto) 10.9 % (0.0-7.3); Platelet Count 141 K/mm3 (140-440); Red Blood Count 3.45 M/mm3 (3.65-5.03); Red Cell Distribution Width 18.2 % (13.2-15.2)
[2021-10-07] MEDS ORDERED: KETOROLAC 30 MG/1 ML INJ IM ONE (23:23)
[2021-10-08 00:51] VITALS: BP 106/79
== END 2021-10-08 00:25 | disposition home or self-care (01) ==
LOC: ED 21:15
DX: K59.00 Constipation, unspecified (principal); R10.13 Epigastric pain; I12.0 Hypertensive chronic kidney disease with stage 5 chronic kidney disease or end stage renal disease; N18.6 End stage renal disease; Z91.013 Allergy to seafood; Z88.8 Allergy status to other drugs, medicaments and biological substances
CPT/HCPCS: 36415; 74176; 80048; 80076; 83690; 85025; 96372; 99284; J1885